=== PATIENT | male | born 1975 | race Hispanic/Latino ===

== ENCOUNTER 2020-01-26 16:27 | Inpatient (IN) | payer SELFPAY ==
[~2020-01-26] VITALS: Ht 175.3 cm; Wt 106.6 kg
[2020-01-26] MEDS ORDERED: ONDANSETRON HCL INJ 2MG/ML 2ML 2 MG/ML VIAL IV STA (16:40)
[2020-01-26] MEDS ORDERED: MORPHINE SULFATE INJ 4 MG/ML INJ 1ML IV PRN (16:45)
[2020-01-26 17:08] LABS: BASOPHILS # (AUTO) 0.1 (0.0-0.1); BASOPHILS % 0.6 % (0.0-1.0); EOSINOPHILS # (AUTO) 0.1 (0.0-0.4); EOSINOPHILS % 0.6 % (0.0-6.0); LYMPHOCYTES # (AUTO) 2.3 (1.0-3.2); LYMPHOCYTES % 25.1 % (18.0-39.1); MEAN CORPUSCULAR HEMOGLOBIN 28.5 pg (28-32); MEAN CORPUSCULAR VOLUME 83.8 fL (81-99); MONOCYTES # (AUTO) 0.8 (0.2-0.8); MONOCYTES % 8.3 % (4.4-11.3); NEUTROPHILS # (AUTO) 5.9 (2.1-6.9); NEUTROPHILS % 64.7 % (38.7-80.0); PLATELET COUNT 249 x10e3/uL (140-360); RED BLOOD COUNT 5.61 x10e6/uL (4.3-5.7); RED CELL DISTRIBUTION WIDTH 12.8 % (11.7-14.4)
[2020-01-26 17:23] LABS: ALANINE AMINOTRANSFERASE 29 IU/L (0-55); ALBUMIN 4.1 g/dL (3.5-5.0); ALBUMIN/GLOBULIN RATIO 1.3 (0.8-2.0); ALKALINE PHOSPHATASE 84 IU/L (40-150); BLOOD UREA NITROGEN 19 mg/dL (7-26); BUN/CREATININE RATIO 20 (6-25); CALCIUM 8.9 mg/dL (8.4-10.2); CARBON DIOXIDE 25 mmol/L (22-29); CHLORIDE 105 mmol/L (98-107); CREATINE KINASE 170 IU/L (30-200); CREATININE, SERUM 0.97 mg/dL (0.72-1.25); EST GLOMERULAR FILTRATION RATE > 60 ML/MIN (60-); GLUCOSE 101 mg/dL (74-118); SODIUM 140 mmol/L (136-145)
[2020-01-26] MEDS ORDERED: SODIUM CHLORIDE 0.9% 50ML 50 ML ONE (18:37)
[2020-01-26] MEDS ORDERED: IOPAMIDOL 370 MG/ML 200 ML INFUS..BTL INJ ONE (18:37)
--- NOTE | 2020-01-26 18:42 | Emergency Department Note ---
History of Present Illnes History of Present Illness Chief Complaint: Abdominal Complaints History of Present Illness This is a 44 year old male Chief Complaint Comment PATIENT IN FROM HOME WITH COMPLAINTS OF ABDOMINAL PAIN AND NAUSEA SINCE THIS MORNING; DENIES VOMITING, DIARRHEA, OR URINARY SYMPTOMS; PATIENT ALERT AND ORIENTED, RESP EVEN AND NONLABORED, APPEARS IN NO DISTRESS, RATES PAIN 8/10, PATIENT STATES THAT HE HAS AN UMBILICAL HERNIA. PATIENT STATES THAT THE PAIN IS WORSE IF HE OVERWORKS HIMSELF. Historian: Patient Arrival Mode: Car Teasel Gig Operator Required: No Onset (how long ago): day(s) (1) Location: umbillical Quality: Dull Radiation: Reports non-radiation Severity: moderate Onset quality: gradual Duration (how long): day(s) (1) Timing of current episode: constant Progression: unchanged Chronicity: recurrent Context: Denies recent illness, Denies recent surgery Relieving factors: none Exacerbating factors: none Associated symptoms: Reports denies other symptoms Treatments prior to arrival: none Past Medical/Family History Physician Review I have reviewed the patient's past medical and family history. Any updates have been documented here. Past Medical History Recent Fever: No Clinical Suspicion of Infectio: No New/Unexplained Change in Ment: No Past Medical History: Hypertension, Diabetes Other Medical History: SMALL UMBILICAL HERNIA Past Surgical History: None Social History Physically hurt or threatened: No Other Last Tetanus: UNK Review of Systems Review of Systems Constitutional: Reports no symptoms; Denies as per HPI, Denies chills, Denies diaphoresis, Denies fever, Denies malaise, Denies weakness, Denies other EENTM: Reports no symptoms Cardiovascular: Reports no symptoms Respiratory: Reports no symptoms Gastrointestinal: Reports as per HPI, Reports abdominal pain Genitourinary: Reports no symptoms Musculoskeletal: Reports no symptoms Integumentary: Reports no symptoms Neurological: Reports no symptoms Psychological: Reports no symptoms Endocrine: Reports no symptoms Hematological/Lymphatic: Reports no symptoms Physical Exam Related Data Allergies: Coded Allergies: No Known Allergies (Unverified , 01/26/20) Triage Vital Signs Vital Signs Date Time Temp Pulse Resp B/P (MAP) Pulse Ox O2 Delivery O2 Flow Rate FiO2 01/26/20 16:41 97.1 81 20 149/96 98 Room Air Vital signs reviewed: Yes Physical Exam CONSTITUTIONAL Constitutional: Present well-developed, Present well-nourished HENT HENT: Present normocephalic, Present atraumatic, Present oropharynx clear/moist, Present nose normal HENT L/R: Present left ext ear normal, Present right ext ear normal EYES Eyes: Reports PERRL, Reports conjunctivae normal NECK Neck: Present ROM normal PULMONARY Pulmonary: Present effort normal, Present breath sounds normal CARDIOVASCULAR Cardiovascular: Present regular rhythm, Present heart sounds normal, Present capillary refill normal, Present normal rate GASTROINTESTINAL Abdominal: Present soft, Present bowel sounds normal, Present tender (periumbillical) GENITOURINARY Genitourinary: Present exam deferred SKIN Skin: Present warm, Present dry MUSCULOSKELETAL Musculoskeletal: Present ROM normal NEUROLOGICAL Neurological: Present alert, Present oriented x 3, Present no gross motor or sensory deficits PSYCHOLOGICAL Psychological: Present mood/affect normal, Present judgement normal Results Laboratory Result Diagram: 01/26/20 1645 01/26/20 1645 Laboratory Laboratory Tests Test 01/26/20 16:45 White Blood Count 9.09 x10e3/uL (4.8-10.8) Red Blood Count 5.61 x10e6/uL (4.3-5.7) Hemoglobin 16.0 g/dL (14.0-18.0) Hematocrit 47.0 % (38.2-49.6) Mean Corpuscular Volume 83.8 fL (81-99) Mean Corpuscular Hemoglobin 28.5 pg (28-32) Mean Corpuscular Hemoglobin Concent 34.0 g/dL (31-35) Red Cell Distribution Width 12.8 % (11.7-14.4) Platelet Count 249 x10e3/uL (140-360) Neutrophils (%) (Auto) 64.7 % (38.7-80.0) Lymphocytes (%) (Auto) 25.1 % (18.0-39.1) Monocytes (%) (Auto) 8.3 % (4.4-11.3) Eosinophils (%) (Auto) 0.6 % (0.0-6.0) Basophils (%) (Auto) 0.6 % (0.0-1.0) Neutrophils # (Auto) 5.9 (2.1-6.9) Lymphocytes # (Auto) 2.3 (1.0-3.2) Monocytes # (Auto) 0.8 (0.2-0.8) Eosinophils # (Auto) 0.1 (0.0-0.4) Basophils # (Auto) 0.1 (0.0-0.1) Absolute Immature Granulocyte (auto 0.06 x10e3/uL (0-0.1) Sodium Level 140 mmol/L (136-145) Potassium Level 4.0 mmol/L (3.5-5.1) Chloride Level 105 mmol/L (98-107) Carbon Dioxide Level 25 mmol/L (22-29) Anion Gap 14.0 mmol/L (8-16) Blood Urea Nitrogen 19 mg/dL (7-26) Creatinine 0.97 mg/dL (0.72-1.25) Estimat Glomerular Filtration Rate > 60 ML/MIN (60-) BUN/Creatinine Ratio 20 (6-25) Glucose Level 101 mg/dL (74-118) Calcium Level 8.9 mg/dL (8.4-10.2) Total Bilirubin 0.4 mg/dL (0.2-1.2) Aspartate Amino Transf (AST/SGOT) 17 IU/L (5-34) Alanine Aminotransferase (ALT/SGPT) 29 IU/L (0-55) Alkaline Phosphatase 84 IU/L (40-150) Creatine Kinase 170 IU/L (30-200) Creatine Kinase MB 2.20 ng/mL (0-5.0) Troponin I 0.018 ng/mL (0-0.300) Total Protein 7.2 g/dL (6.5-8.1) Albumin 4.1 g/dL (3.5-5.0) Globulin 3.1 g/dL (2.3-3.5) Albumin/Globulin Ratio 1.3 (0.8-2.0) Lipase 14 U/L (8-78) Lab results reviewed: Yes Imaging Imaging results reviewed: Yes Diagnostics Tests Diagnostic test(s) reviewed: Yes Assessment & Plan Medical Decision Making MDM 44 y.o m presents for abdominal pain. hx of umbilical hernia. Exam shows periumbilical hernia. No erythema surrounding hernia. Diff includes incarcerated hernia vs strangulation vs functional abd pain among other.s Labs/Ct show SBO with incarcerated hernia. Will admit to Dr. Washington and Dr. Fernandes consulted for surgery. Appropriate for transfer to floor. Reassessment Reassessment time: 20:01 Reassessment Pain improved, hernia appears reduced Assessment & Plan Final Impression: (1) Incarcerated hernia (2) SBO (small bowel obstruction) Depart Disposition: ADMITTED Last Vital Signs Date Time Temp Pulse Resp B/P (MAP) Pulse Ox O2 Delivery O2 Flow Rate FiO2 01/26/20 16:41 97.1 81 20 149/96 98 Room Air Home Meds No Active Prescriptions or Reported Meds Medications in the ED Morphine Sulfate 4 mg ONCE PRN IV SEVERE PAIN (7-10) Last administered on 01/25at 17:23; Admin Dose 4 MG; Start 01/26/20 at 16:45; Stop 02/02/20 at 16:44 Ondansetron HCl 4 mg NOW STAT IV Last administered on 01/26/20at 17:23; Admin Dose 4 MG; Start 01/26/20 at 16:40; Stop 01/26/20 at 16:46; Status DC Sodium Chloride 50 ml @ ud STK-MED ONCE .ROUTE ; Start 01/26/20 at 18:37; Stop 01/26/20 at 18:30; Status DC Iopamidol 74,000 mg STK-MED ONCE INJ ; Start 01/26/20 at 18:37; Stop 01/26/20 at 18:30; Status DC CHATA DASILVA MD Jan 26, 2020 18:42
--- NOTE | 2020-01-26 19:04 | Diagnostic Imaging Report ---
EXAM: CT Abdomen and Pelvis WITH contrast INDICATION: Abdominal pain. COMPARISON: None. TECHNIQUE: Abdomen and pelvis were scanned utilizing a multidetector helical scanner from the lung base to the pubic symphysis after administration of IV contrast. Coronal and sagittal reformations were obtained. Routine protocol was performed. Scan was performed when during portal venous phase. IV CONTRAST: 100 mL of Isovue 370 ORAL CONTRAST: None COMPLICATIONS: None RADIATION DOSE: Total DLP: 778 mGy*cm Estimated effective dose: (DLP x 0.015 x size factor) mSv CTDIvol has been reviewed. It is below the limits set by the Radiation Protocol Committee (RPC). Dose modulation, iterative reconstruction, and/or weight based adjustment of the mA/kV was utilized to reduce the radiation dose to as low as reasonably achievable. FINDINGS: LINES and TUBES: None. LOWER THORAX: Unremarkable HEPATOBILIARY: The liver is diffuse hypodense compared to the spleen, consistent with diffuse hepatic diffuse hepatic steatosis. No focal hepatic lesions. No biliary ductal dilation. GALLBLADDER: No radio-opaque stones or sludge. No wall thickening. SPLEEN: No splenomegaly. PANCREAS: No focal masses or ductal dilatation. ADRENALS: No adrenal nodules KIDNEYS/URETERS: Kidneys enhance symmetrically. No hydronephrosis. No cystic or solid mass lesions. No stones. GI TRACT: There is an umbilical hernia containing short segment of mid small bowel resulting in small bowel obstruction proximally. No evidence of small bowel strangulation. The colon is normal. Appendix is not clearly identified. There is however no fat stranding or adenopathy in the right lower quadrant to suggest appendicitis. PELVIC ORGANS/BLADDER: Unremarkable. LYMPH NODES: No lymphadenopathy. VESSELS: Unremarkable. PERITONEUM / RETROPERITONEUM: No free air or fluid. BONES: Unremarkable. SOFT TISSUES: Unremarkable. IMPRESSION: Umbilical hernia containing short segment of likely incarcerated mid small bowel resulting in small bowel obstruction proximally. No evidence of granulation. Recommend general surgery consultation. Signed by: Dexter Norris MD on 01/26/2020 7:01 PM
[2020-01-26] MEDS ORDERED: LISINOPRIL10 MG PO (20:46)
[2020-01-26] MEDS ORDERED: METFORMIN HCL1000 MG PO (20:46)
[2020-01-26] MEDS: SODIUM CHLORIDE 0.9% 1000ML 1,000 ML IV SCH (20:50)
[2020-01-26] MEDS ORDERED: SODIUM CHLORIDE 0.9% 1000ML 1,000 ML ONE (20:56)
[2020-01-26 22:15] VITALS: BP 134/75
--- NOTE | 2020-01-26 22:15 | NUR ---
PATIENT RECEIVED FROM ER. PATIENT IS AAOX4. RESP EVEN AND UNLABORED. NO ACUTE DISTRESS NOTED. TELE IN PLACE. ORIENTED TO ROOM. EDUCATED PT ABOUT FALL PRECAUTIONS. PT VERBALIZED UNDERSTANDING. CALL LIGHT WITH IN EASY REACH. INSTRUCTED PT TO USE CALL LIGHT FOR ALL THE NEEDS. BED IS LOW AND LOCKED. SIDE RAILS X2. PT DENIES NEEDS AT THIS TIME.
[2020-01-26 22:28] VITALS: BP 134/75
--- NOTE | 2020-01-26 23:20 | NUR ---
OBTAINED CONSENT FORM FOR SURGERY. NOTIFIED OUTSIDE RIGGER
[2020-01-27] VITALS (12 sets, daily range): BP systolic 99–145; BP diastolic 52–85
[2020-01-27 05:49] LABS: BASOPHILS % 0.4 % (0.0-1.0); EOSINOPHILS # (AUTO) 0.1 (0.0-0.4); EOSINOPHILS % 1.3 % (0.0-6.0); HEMATOCRIT 46.6 % (38.2-49.6); HEMOGLOBIN 15.3 g/dL (14.0-18.0); LYMPHOCYTES # (AUTO) 3.2 (1.0-3.2); LYMPHOCYTES % 38.3 % (18.0-39.1); MEAN CORPUSCULAR HEMOGLOBIN 28.5 pg (28-32); MEAN CORPUSCULAR HGB CONC 32.8 g/dL (31-35); MEAN CORPUSCULAR VOLUME 86.9 fL (81-99); MONOCYTES # (AUTO) 0.8 (0.2-0.8); MONOCYTES % 9.1 % (4.4-11.3); NEUTROPHILS # (AUTO) 4.2 (2.1-6.9); NEUTROPHILS % 50.2 % (38.7-80.0); PLATELET COUNT 244 x10e3/uL (140-360); RED BLOOD COUNT 5.36 x10e6/uL (4.3-5.7); RED CELL DISTRIBUTION WIDTH 12.7 % (11.7-14.4)
[2020-01-27 06:06] LABS: ANION GAP 11.6 mmol/L (8-16); BLOOD UREA NITROGEN 18 mg/dL (7-26); BUN/CREATININE RATIO 17 (6-25); CALCIUM 8.8 mg/dL (8.4-10.2); CARBON DIOXIDE 29 mmol/L (22-29); CHLORIDE 106 mmol/L (98-107); CREATININE, SERUM 1.04 mg/dL (0.72-1.25); EST GLOMERULAR FILTRATION RATE > 60 ML/MIN (60-); GLUCOSE 101 mg/dL (74-118); POTASSIUM 4.6 mmol/L (3.5-5.1); SODIUM 142 mmol/L (136-145)
[2020-01-27] MEDS: SODIUM CHLORIDE 0.9% 1000ML 1,000 ML IV SCH ×3 (06:31→23:15)
--- NOTE | 2020-01-27 06:55 | Consultation ---
DATE OF CONSULTATION: 01/27/2020 HISTORY OF PRESENT ILLNESS: The patient is a 44-year-old male, who presents with complaints of abdominal pain. The patient says the pain started yesterday, was in the area where he had known hernia, came to the emergency room where evaluation revealed incarcerated hernia containing small bowel intestinal obstruction. Hernia was reduced in the emergency room. The patient says he feels better now. He denies nausea or vomiting. PAST MEDICAL HISTORY: Significant for hypertension and diabetes. MEDICATIONS: Medications at home were lisinopril and metformin. PAST SURGICAL HISTORY: He has not had previous surgery. ALLERGIES: THERE WERE NO KNOWN ALLERGIES. FAMILY HISTORY: Noncontributory. SOCIAL HISTORY: The patient does not smoke cigarettes or drink alcohol. REVIEW OF SYSTEMS: As stated above, otherwise was negative. PHYSICAL EXAMINATION: GENERAL: The patient is awake and alert, in no distress. VITAL SIGNS: Normal. He is afebrile. HEENT: Sclerae are not icteric. NECK: Supple. No masses. LUNGS: Equal breath sounds are clear bilaterally. CARDIAC: Regular rate and rhythm. Normal S1, S2 without murmur, S3, S4. There is no jugular venous distention. ABDOMEN: Soft. There is mild tenderness above the umbilicus, where there is a hernia that is reducible. There is no organomegaly. No signs of peritonitis. EXTREMITIES: No edema. Pulses are palpable. NEUROLOGIC: Intact. LABORATORY TESTS: White blood cell count is normal. Hemoglobin and hematocrit are normal. Differential was normal. Chemistries also are essentially normal. ASSESSMENT: A 44-year-old male with incarcerated ventral hernia that now seems to be reduced, however, did cause intestinal obstruction. He will best be treated with repair of the hernia, which I plan to schedule for later today. Procedure was explained to the patient including risks, benefits, and alternatives. He understands. He has had the opportunity to ask questions. I thank you for asking me to see Mr. Lanier. MD DIONNA Bello/LAUREN /[id number]
--- NOTE | 2020-01-27 07:00 | NUR ---
RCD PT AT BED PT IS ALERT AND ORIENTED PT RESTING ON BED IV PATENT PATIENT NPO FOR PROCEDURE BED LOW AND LOCKED CALL LIGHT IN REACH
[2020-01-27] MEDS ORDERED: ACETAMINOPHEN 325 MG TAB PO PRN (11:45)
[2020-01-27] MEDS ORDERED: DEXTROSE 50% SYRINGE 50 ML IV PRN (11:45)
[2020-01-27] MEDS ORDERED: ONDANSETRON HCL INJ 2MG/ML 2ML 2 MG/ML VIAL IV PRN ×2 (11:45→13:45)
[2020-01-27] MEDS ORDERED: HYDRALAZINE HCL 20 MG/ML VIAL IV PRN (11:45)
--- NOTE | 2020-01-27 12:00 | NUR ---
PT WENT TO PROCEDURE IN SAFE CONDITION
[2020-01-27] MEDS ORDERED: SUCCINYLCHOLINE CHLORIDE 20 MG/ML 10ML VIAL ONE (12:57)
[2020-01-27] MEDS ORDERED: ONDANSETRON HCL INJ 2MG/ML 2ML 2 MG/ML VIAL ONE (12:57)
[2020-01-27] MEDS ORDERED: PHENYLEPHRINE HCL 1% 10 MG/ML VIAL ONE (12:57)
[2020-01-27] MEDS ORDERED: ROCURONIUM BROMIDE 10 MG/ML 5ML VIAL IV ONE (12:57)
[2020-01-27] MEDS ORDERED: LIDOCAINE HCL 2% LOCAL INJ 5 ML SDV VIAL INJ ONE (12:57)
[2020-01-27] MEDS ORDERED: DEXAMETHASONE SOD PHOS INJ 4 MG/ML VIAL ONE (12:57)
[2020-01-27] MEDS ORDERED: PROPOFOL IV EMULSION 10 MG/ML 20 ML VIAL ONE (12:57)
[2020-01-27] MEDS ORDERED: SEVOFLURANE INHAL SOLN 250 ML PEN BTL ONE (12:57)
[2020-01-27] MEDS ORDERED: BUPIVACAINE HCL 0.5% INJ 30 ML VIAL INJ ONE (12:58)
[2020-01-27] MEDS ORDERED: SUGAMMADEX SODIUM 200 MG/2 ML VIAL IV ONE (13:42)
[2020-01-27] MEDS ORDERED: MEPERIDINE HCL INJ 25 MG/ML VIAL ONE (14:25)
--- NOTE | 2020-01-27 14:45 | NUR ---
PT BACK AFTER PROCEDURE PT IS ALERT AND ORIENTED VITALS CHECKED NO SIGNS OF ANY BLEEDING ON THE SURGICAL SITE FAMILY AT BED SIDE BED LOW AND LOCKED CALL LIGHT IN REACH
[2020-01-27 16:22] LABS: BASOPHILS % 0.3 % (0.0-1.0); EOSINOPHILS % 0.2 % (0.0-6.0); HEMATOCRIT 44.1 % (38.2-49.6); HEMOGLOBIN 14.5 g/dL (14.0-18.0); LYMPHOCYTES # (AUTO) 1.7 (1.0-3.2); LYMPHOCYTES % 17.4 % (18.0-39.1); MEAN CORPUSCULAR HEMOGLOBIN 28.4 pg (28-32); MEAN CORPUSCULAR HGB CONC 32.9 g/dL (31-35); MEAN CORPUSCULAR VOLUME 86.3 fL (81-99); MONOCYTES # (AUTO) 0.6 (0.2-0.8); MONOCYTES % 6.6 % (4.4-11.3); NEUTROPHILS # (AUTO) 7.1 (2.1-6.9); NEUTROPHILS % 74.9 % (38.7-80.0); PLATELET COUNT 225 x10e3/uL (140-360); RED BLOOD COUNT 5.11 x10e6/uL (4.3-5.7); RED CELL DISTRIBUTION WIDTH 12.7 % (11.7-14.4)
[2020-01-27] MEDS: FAMOTIDINE 20 MG TAB PO SCH (16:30)
[2020-01-27] MEDS: INSULIN LISPRO 100 UNIT/1 ML 3ML VIAL SQ SCH ×2 (16:30→20:28)
[2020-01-27] MEDS: LISINOPRIL 10 MG TAB PO SCH (16:49)
[2020-01-27 16:53] LABS: ALANINE AMINOTRANSFERASE 26 IU/L (0-55); ALBUMIN 3.6 g/dL (3.5-5.0); ALBUMIN/GLOBULIN RATIO 1.3 (0.8-2.0); ALKALINE PHOSPHATASE 67 IU/L (40-150); BLOOD UREA NITROGEN 16 mg/dL (7-26); BUN/CREATININE RATIO 16 (6-25); CALCIUM 8.1 mg/dL (8.4-10.2); CARBON DIOXIDE 28 mmol/L (22-29); CHLORIDE 104 mmol/L (98-107); CREATININE, SERUM 0.98 mg/dL (0.72-1.25); EST GLOMERULAR FILTRATION RATE > 60 ML/MIN (60-); GLUCOSE 102 mg/dL (74-118); SODIUM 139 mmol/L (136-145)
--- NOTE | 2020-01-27 17:48 | Operative Report ---
DATE OF PROCEDURE: 01/27/2020 SURGEON: Hawk Fernandes MD PREOPERATIVE DIAGNOSIS: Incarcerated ventral hernia. POSTOPERATIVE DIAGNOSIS: Incarcerated ventral hernia. PROCEDURE: Repair of incarcerated ventral hernia. PRINTED CIRCUIT BOARDS STRIPPER ETCHER: None. ANESTHESIA: General. INDICATIONS AND FINDINGS: The patient is a 44-year-old male, who presented with complaints of pain and swelling just above the umbilicus, where he had a known hernia, evaluation revealed incarcerated hernia with small bowel obstruction. At Surgery, there was inflamed hernia sac, which contained omentum. There was no bowel within the hernia at the time of the surgery. The omentum was chronically incarcerated. The fascial defect was about 1.2 cm. TECHNIQUE: After adequate general endotracheal anesthesia, the patient is in supine position, the abdomen was prepped and draped in sterile fashion with ChloraPrep solution. Transverse incision was made above the umbilicus over where the hernia was, it was carried down through subcutaneous tissue. Herniated mass identified, dissected free from the surrounding tissues down to the fascia, it was freed from the fascia throughout circumference of the hernia defect. There was no bowel within the hernia at this time, having been reduced. There was some omentum, which was chronically incarcerated, this was reduced into the peritoneal cavity and the hernia sac was reduced beneath the fascia. The fascial defect was then closed transversely with a running suture of #0 Prolene. Hemostasis of wound was seen to be adequate. The wound was then infiltrated with 0.5% Marcaine. The subcutaneous tissue was closed with running suture of 3-0 Vicryl. Skin was closed with a running subcuticular suture of 4-0 Vicryl. Dermabond and sterile dressing were applied. The patient tolerated the procedure well. Estimated blood loss was less than 5 mL. There were no complications. All counts were correct. The patient was taken to the recovery room in satisfactory condition. MD RYLAN BelloG/MODL /[id number] cc: Fredis Washington MD
[2020-01-27] MEDS: HYDROCODONE/APAP 5MG-325MG TAB PO PRN ×2 (18:00→22:15)
--- NOTE | 2020-01-27 18:45 | NUR ---
Received bedside shift report from morning nurse. Pt alert and oriented, ambulating from bathroom with steady gait. Denies pain at this time. S/P hernia repair drsg c/d/i. Call mccartney within reach. Bed low and locked. Goal pain management and go home tomorrow.
--- NOTE | 2020-01-27 18:45 | NUR ---
PT RESTING ON BED BED SIDE REPORT GIVEN TO ONCOMING NURSE
[2020-01-28] VITALS: BP 126/76
[2020-01-28 04:00] VITALS: BP 113/73
--- NOTE | 2020-01-28 07:23 | NUR ---
Bedside report with morning nurse. Pt alert and oriented, no distress noted.
[2020-01-28] MEDS: FAMOTIDINE 20 MG TAB PO SCH (07:30)
[2020-01-28] MEDS: INSULIN LISPRO 100 UNIT/1 ML 3ML VIAL SQ SCH (07:30)
[2020-01-28] MEDS ORDERED: TYLENOL # 31 EA PO (07:39)
[2020-01-28 08:05] VITALS: BP 141/94
[2020-01-28 08:45] VITALS: BP 141/94
[2020-01-28] MEDS: LISINOPRIL 10 MG TAB PO SCH (09:00)
[2020-01-28] MEDS: SODIUM CHLORIDE 0.9% 1000ML 1,000 ML IV SCH (09:45)
[2020-01-28 11:22] VITALS: BP 120/77
--- NOTE | 2020-01-28 11:25 | NUR ---
PATIENT WENT HOME IN SAFE CONDITION WITH HIS
--- OUTSIDE RECORDS SUMMARY | 2020-01-28 19:09 | XMS REPORT | Continuity of Care Document ---
Author Author [facility] t Organization [facility] Address [address] [place] [address] Phone Unavailable Care Team Providers Care Speech Communication Professor Name Role Phone NO, PCP PCP Unavailable Zora Montiel Attphys Unavailable LAURYN, Hillary CASTELLON Attphys Unavailable Payers Payer Name Policy Type Policy Number Effective Date Expiration Date S ashlyn [employer] [place] [employer] [id number] I [facility] Problems This patient has no known problems. Allergies, Adverse Reactions, Alerts This patient has no known allergies or adverse reactions. Medications This patient has no known medications. Procedures Procedure Date / Time Performed Performing Clinician [facility] e X-ray of chest, two views 2019-04-12 00:00:00 KAMERON ESTRADA [facility] Encounters Start Date/Time End Date/Time Encounter Type Admission Type Attendi [facility] Facility Care Department Encounter ID Source 2019-04-12 11:43:00 2019-04-12 15:04:00 Departed Emergency Room 1 [facility] [id number] [facility] Results Test Description Test Time Test Comments Results Result Comments Source CT ABDOMEN/PELVIS W 2020-01-26 18:46:00 [facility] 1975 Sex: M [facility] [address] [address] Patient Name: LALY ALTMAN MR #: [id number] : 1975 Age/Sex: 44/M Req #: [id number] Adm Physician: Ordered by: Chata Montiel MD Report #: [id number] Location: ER Room/Bed: Procedure: [id number] CT/CT ABDOMEN/PELVIS W Exam Date: Exam Time: REPORT STATUS: Signed EXAM: CT Abdomen and Pelvis WITH contrast INDICATION: Abdominal pain. COMPARISON: None. TECHNIQUE: Abdomen and pelvis were scanned utilizing a multidetector helical scanner from the lung base to the pubic symphysis after administration of IV contrast. Coronal and sagittal reformations were obtained. Routine protocol was performed. Scan was performed when during portal venous phase. IV CONTRAST: 100 mL of Isovue 370 ORAL CONTRAST: None COMPLICATIONS: None RADIATION DOSE: Total DLP: 778 mGy*cm Estimated effective dose: (DLP x 0.015 x size factor) mSv CTDIvol has been reviewed. It is below the limits set by the Radiation Protocol Committee (RPC). Dose modulation, iterative reconstruction, and/or weight based adjustment of the mA/kV was utilized to reduce the radiation dose to as low as reasonably achievable. FINDINGS: LINES and TUBES: None. LOWER THORAX: Unremarkable HEPATOBILIARY: The liver is diffuse hypodense compared to the spleen, consistent with diffuse hepatic diffuse hepatic steatosis. No focal hepatic lesions. No biliary ductal dilation. GALLBLADDER: No radio-opaque stones or sludge. No wall thickening. SPLEEN: No splenomegaly. PANCREAS: No focal masses or ductal dilatation. ADRENALS: No adrenal nodules KIDNEYS/URETERS: Kidneys enhance symmetrically. No hydronephrosis. No cystic or solid mass le sions. No stones. GI TRACT: There is an umbilical hernia containing short segment of mid small bowel resulting in small bowel obstruction proximally. No evidence of small bowel strangulation. The colon is normal. Appendix is not clearly identified. There is however no fat stranding or adenopathy in the right lower quadrant to suggest appendicitis. PELVIC ORGANS/BLADDER: Unremarkable. LYMPH NODES: No lymphadenopathy. VESSELS: Unremarkable. PERITONEUM / RETROPERITONEUM: No free air or fluid. BONES: Unremarkable. SOFT TISSUES: Unremarkable. IMPRESSION: Umbilical hernia containing short segment of likely incarcerated mid small bowel resulting in small bowel obstruction proximally. No evidence of granulation. Recommend general surgery consultation. Signed by: Crow Rodriguez MD on 01/26/2020 7:01 PM Dictated By: CROW RODRIGUEZ MD 00 Transcribed By: KEVIN on 01/26/201900 COPY TO: CHATA MONTIEL MD CERVICAL SPINE 4 OR 5 VIEWS 2019-04-12 13:49:00 [address] [address] Patient Name: LALY ALTMAN MR #: [id number] : 1975 Age/Sex: 43/M Req #: [id number] Adm Physician: Ordered by: KAMERON ESTRADA NP Report #: [id number] Location: ER Room/Bed: Procedure: [id number] DX/CERVICAL SPINE 4 OR 5 VIEWS Exam Date: 04/12/19 Exam Time: 1250 REPORT STATUS: Signed Cervical Spine, 7 views HISTORY: Pain. COMPARISON: None. FINDINGS: Limited sensitivity for detection of subtle fractures and ligamentous abnormalities. On the lateral view, the cervical spine is visualized from the skull base to T1. The alignment is normal. No acute displaced fracture involving the visualized cervical spine. Incidental congenital short cervical ribs. Disc Spaces and Uncovertebral Joints: Mild disc space narrowing at C7-T1. No significant narrowing of the uncovertebral joints. Facets: The facet joints are unremarkable. IMPRESSION: Degenerative changes at C7-T1 resulting in a spinal canal narrowing. Incidental congenital short cervical ribs. Correlate with symptoms of thoracic outlet syndrome. Signed by: Dr. Jolene Longoria M.D. on 04/12/2019 1:51 PM Dictated By: JOLENE LONGORIA MD 1351 Transcribed By: KEVIN on 04/12/19 1351 COPY TO: KAMERON ESTRADA NP RIBS UNILAT W/CXR 2019-04-12 13:48:00 [address] [address] Patient Name: LALY ALTMAN MR #: [id number] : 1975 Age/Sex: 43/M Req #: [id number] Adm Physician: Ordered by: KAMERON ESTRADA NP Report #: [id number] Location: ER Room/Bed: Procedure: [id number] DX/RIBS UNILAT W/CXR Exam Date: 04/12/19 Exam Time: 1250 REPORT STATUS: Signed EXAMINATION: RIBS UNILAT W/CXR INDICATION: right rib [id number] COMPARISON: Chest radiograph 04/12/2019 FINDINGS: PA and lateral views TUBES and LINES: None. LUNGS: Lungs are well inflated. Moderate bilateral hilar and lower lobes. Bronchial wall thickening and reticulation of the lungs. No lobar consolidations or pulmonary edema. PLEURA: No pleural effusion or pneumothorax. HEART AND MEDIASTINUM: The cardiomediastinal silhouette is unremarkable. BONES AND SOFT TISSUES: No acute osseous lesion. Soft tissues are unremarkable. UPPER ABDOMEN: No free air under the diaphragm. IMPRESSION: Radiographic findings suggestive of acute bronchitis or viral pneumonia. Recommend follow-up chest radiograph in 4-6 weeks. Signed by: Dr. Jolene Longoria M.D. on 04/12/2019 1:49 PM Dictated By: JOLENE LONGORIA MD 134 Transcribed By: KEVIN on 04/12/19 1349 COPY TO: KAMERON ESTRADA NP CHEST 2 VIEWS 2019-04-12 13:47:00 [address] [address] Patient Name: LALY ALTMAN MR #: [id number] : 1975 Age/Sex: 43/M Req #: [id number] Adm Physician: Ordered by: KAMERON ESTRADA NP Report #: [id number] Location: ER Room/Bed: Procedure: [id number] DX/CHEST 2 VIEWS Exam Date: 04/12/19 Exam Time: 1250 REPORT STATUS: Signed EXAMINATION: CHEST 2 VIEWS INDICATION: right rib [id number] COMPARISON: None FINDINGS: PA and lateral views TUBES and LINES: None. LUNGS: Lungs are well inflated. Moderate bilateral hilar and lower lobes. Bronchial wall thickening and reticulation of the lungs. No lobar consolidations or pulmonary edema. PLEURA: No pleural effusion or pneumothorax. HEART AND MEDIASTINUM: The cardiomediastinal silhouette is unremarkable. BONES AND SOFT TISSUES: No acute osseous lesion. Soft tissues are unremarkable. UPPER ABDOMEN: No free air under the diaphragm. IMPRESSION: Radiographic findings suggestive of acute bronchitis or viral pneumonia. Recommend follow-up chest radiograph in 4-6 weeks. Signed by: Dr. Jolene Longoria M.D. on 04/12/2019 1:48 PM Dictated By: JOLENE LONGORIA MD 1348 Transcribed By: KEVIN on 04/12/19 1348 COPY TO: KAMERON ESTRADA NP
--- OUTSIDE RECORDS SUMMARY | 2020-01-28 19:21 | XMS REPORT | Continuity of Care Document ---
Author Author [facility] t Organization [facility] Address [address] [place] [address] Phone Unavailable Care Team Providers Care Physics Technical Officer Name Role Phone NO, PCP PCP Unavailable Zora Montiel Attphys Unavailable LAURYN, Hillary CASTELLON Attphys Unavailable Payers Payer Name Policy Type Policy Number Effective Date Expiration Date S ashlyn [employer] [place] Ppo [id number] I [facility] Problems This patient has no known problems. Allergies, Adverse Reactions, Alerts This patient has no known allergies or adverse reactions. Medications This patient has no known medications. Procedures Procedure Date / Time Performed Performing Clinician [facility] e X-ray of chest, two views 2019-04-12 00:00:[address] [facility] [place], [place] Encounters Start Date/Time End Date/Time Encounter Type Admission Type Attendi [facility] Facility Care Department Encounter ID Source 2019-04-12 11:43:00 2019-04-12 15:04:00 Departed Emergency Room 1 [facility] [id number] [facility] Results Test Description Test Time Test Comments Results Result Comments Source CT ABDOMEN/PELVIS W 2020-01-26 18:46:00 [facility] : 1975 Sex: M [facility] [address] [address] Patient Name: LALY ALTMAN MR #: [id number] : 1975 Age/Sex: 44/M Req #: [id number] Adm Physician: Ordered by: Chata Montiel MD Report #: [id number] Location: ER Room/Bed: Procedure: [id number] CT/CT ABDOMEN/PELVIS W Exam Date: Exam Time: [...] SPINE 4 OR 5 VIEWS 2019-04-12 13:49:00 [address] [place] [address] Patient Name: LALY ALTMAN MR #: [id number] : 1975 Age/Sex: 43/M Req #: [id number] Adm Physician: Ordered by: KAMERON ESTRADA NP Report #: [id number] Location: ER Room/Bed: Procedure: [id number] DX/CERVICAL SPINE 4 OR 5 VIEWS Exam [...] ESTRADA NP RIBS UNILAT W/CXR 2019-04-12 13:48:00 [address] [place] [address] Patient Name: LALY ALTMAN MR #: [id number] : 1975 Age/Sex: 43/M Req #: [id number] Adm Physician: Ordered by: KAMERON ESTRADA NP Report #: [id number] Location: ER Room/Bed: Procedure: [id number] DX/RIBS UNILAT W/CXR Exam Date: 04/12/19 Exam [...] ESTRADA NP CHEST 2 VIEWS 2019-04-12 13:47:00 [address] [place] [address] Patient Name: LALY ALTMAN MR #: [id number] : 1975 Age/Sex: 43/M Req #: [id number] Adm Physician: Ordered by: KAMERON ESTRADA NP Report #: [id number] Location: ER Room/Bed: Procedure: [id number] DX/CHEST 2 VIEWS Exam Date: 04/12/19 Exam [...]
--- NOTE | 2020-01-29 02:56 | Discharge Summary ---
ADMISSION DIAGNOSES: Incarcerated ventral hernia, type 2 diabetes, hypertension, obesity with a BMI of 34.7. DISCHARGE DIAGNOSES: Incarcerated ventral hernia, type 2 diabetes, hypertension, obesity with a BMI of 34.7. HISTORY: Type 2 diabetes and hypertension. SURGICAL HISTORY: None. SOCIAL HISTORY: Noncontributory. HOSPITAL COURSE: A 44-year-old male admits with complaints of sharp constant periumbilical abdominal pain that began yesterday morning. He had the pain over a year ago, but surgery was not warranted. He denies vomiting, but admits to having nausea. On admission, Surgery was consulted and repair of the hernia was scheduled. CT of the abdomen and pelvis showed umbilical hernia containing short-segment of likely incarcerated mid small bowel resulting in small bowel obstruction proximally. No evidence of granulation. The patient had hernia repair and tolerated the procedure well. The following day, he is passing gas and tolerating a regular diet. He was discharged home with pain medicine per Surgery recommendation. He will follow up with primary care in 1 to 2 weeks and Surgery in 1 week. The patient understands discharge instructions and agrees to plan. Vital signs stable, the patient afebrile. Dictated by Sandra Flores NP MD CHACHO Reyes/LAUREN /[id number]
== END 2020-01-28 11:25 | disposition home or self-care (01) | DRG 355 ==
LOC: ER 16:52 → ERHOLD 20:41 → MED/SURG2 22:01
PROVIDERS: ADMIT Internal Medicine; ATTEND Internal Medicine
PROC: 0WQF4ZZ Repair Abdominal Wall, Percutaneous Endoscopic Approach (ICD-10-PCS; principal; 2020-01-27 12:00)
DX: K43.6 Other and unspecified ventral hernia with obstruction, without gangrene (principal); I10 Essential (primary) hypertension; E11.9 Type 2 diabetes mellitus without complications; Z11.59 Encounter for screening for other viral diseases
CPT/HCPCS: 36415; 74177; 80048; 80053; 82550; 82553; 82948; 83690; 84484; 85025; 96361; 99284; J0330; J1100; J2001; J2175; J2270; J2370; J2405; J7030; Q9967